=== PATIENT | male | born 1950 | race Caucasian/White ===

== ENCOUNTER 2024-07-10 11:38 | Inpatient (IN) | payer OTHER ==
[2024-07-10 13:35] LABS: #Basophils 0.04 10x3/uL (0.0-0.2); %Basophils 0.4 % (0.0-1.0); %Eosinophils 4.9 % (0.0-10.0); %Lymphocytes 12.3 % (21.0-51.0); %Monocytes 8.1 % (0.0-10.0); %Neutrophils 73.4 % (42.0-75.0); Hematocrit 25.3 % (42.0-52.0); Hemoglobin 8.9 g/dL (14.0-18.0); Mean Corpuscular HGB CONC 35.2 g/dL (32.0-36.0); Mean Corpuscular Hemoglobin 30.7 pg (27.0-31.0); Mean Corpuscular Volume 87.2 fL (78.0-98.0); Mean Platelet Volume 9.3 fL (7.4-10.4); Platelet Count 325 10x3/uL (130-400); RBC Distribution Width 14.1 % (11.5-14.5)
[2024-07-10 13:45] LABS: ALT (SGPT) 23 U/L (8-55); AST (SGOT) 33 U/L (5-34); Albumin 2.9 g/dL (3.4-4.8); Alkaline Phosphatase 79 U/L (40-110); Anion Gap 13 mmol/L (10-20); BUN (Urea Nitrogen) 18 mg/dL (8.4-25.7); Bilirubin, Total 1.4 mg/dL (0.2-1.2); Calc. Creatinine Clearance 0 mL/min (70-130); Calcium 8.4 mg/dL (7.8-10.44); Carbon Dioxide 20 mmol/L (23-31); Chloride 107 mmol/L (98-107); Estimated GFR 85; Globulin 3.9 g/dL (2.4-3.5); Glucose 74 mg/dL (83-110); Potassium 4.2 mmol/L (3.5-5.1); Protein, Total 6.8 g/dL (5.8-8.1); Sodium 136 mmol/L (136-145)
[2024-07-10 13:50] LABS: Troponin I 0.159 ng/mL (< 0.028)
[2024-07-10] MEDS ORDERED: Aspirin Chewable 81 MG TAB ONE (14:04)
[2024-07-10] MEDS ORDERED: Cefepime 2 GM VIAL ONE (15:30)
[2024-07-10] MEDS ORDERED: Sodium Chloride 0.9% 100 ML ONE (15:30)
[2024-07-10] MEDS ORDERED: Vancomycin 1 GM/200 ML (FROZEN) BAG ONE (15:30)
[2024-07-10] MEDS ORDERED: Ondansetron PF 4 MG/2 ML Vial IVP PRN (18:38)
[2024-07-10] MEDS ORDERED: Loperamide HCl 2 MG CAP PO PRN (18:38)
[2024-07-10] MEDS ORDERED: Nitroglycerin 0.4 MG TAB (25 Tab Bottle) SL SCH (18:45)
[2024-07-10] MEDS ORDERED: Glucagon 1 MG/ML KIT IM PRN (19:04)
[2024-07-10] MEDS ORDERED: Dextrose 5% in Water 1,000 ML IV PRN (19:04)
[2024-07-10] MEDS ORDERED: Dextrose 50% Abboject 50 ML SYRINGE SLOW IVP PRN (19:04)
[2024-07-10 19:56] LABS: Troponin I 0.134 ng/mL (< 0.028)
[2024-07-10] MEDS ORDERED: Nitroglycerin 0.4 MG TAB (25 Tab Bottle) SL PRN (20:10)
[2024-07-10] MEDS: Acetaminophen 325 MG TAB PO SCH (21:19)
[2024-07-10] MEDS: Atorvastatin Calcium 40 MG TAB PO SCH (21:24)
[2024-07-10] MEDS: Ascorbic Acid 500 mg Chewable Tablet PO SCH (21:24)
[2024-07-10] MEDS: Acetaminophen/Codeine 30-300mg Tablet PO PRN (21:24)
[2024-07-10] MEDS: Lactulose 20 GM (30 mL) UDCUP PO SCH (21:26)
[2024-07-10] MEDS ORDERED: HumaLOG 300 UNITS/3 ML VIAL SC PRN (21:30)
[2024-07-10 21:44] VITALS: BMI 33.3
[2024-07-10] MEDS: Piperacillin/Tazobactam 3.375 GM in Sodium Chloride 0.9% 100 ML IVPB SCH ×2 (22:14→22:26)
[2024-07-10] MEDS: Famotidine/PF 20 mg/2ml Vial SLOW IVP SCH (22:14)
[2024-07-10] MEDS: Insulin Lispro 100 UNIT/ML 10 ML VIAL SC PRN (22:15)
[2024-07-10] MEDS: Insulin NPH Human Isophane 100 UNITS/ML (10 ML VIAL) SC SCH (22:45)
[2024-07-10] MEDS: Vancomycin HCl 750 MG in Sodium Chloride 0.9% 250 ML 250 ML IVPB SCH (23:04)
[2024-07-10] MEDS: Vancomycin 1 GM in Premix 1 BAG IVPB SCH (23:59)
[2024-07-11] MEDS: Piperacillin/Tazobactam 3.375 GM in Sodium Chloride 0.9% 100 ML IVPB SCH (02:09)
[2024-07-11 05:15] LABS: #Basophils 0.07 10x3/uL (0.0-0.2); %Lymphocytes 12.9 % (21.0-51.0); %Monocytes 8.5 % (0.0-10.0); %Neutrophils 70.6 % (42.0-75.0); Hematocrit 25.6 % (42.0-52.0); Hemoglobin 8.5 g/dL (14.0-18.0); Mean Corpuscular HGB CONC 33.2 g/dL (32.0-36.0); Mean Corpuscular Hemoglobin 30.8 pg (27.0-31.0); Mean Corpuscular Volume 92.8 fL (78.0-98.0); Platelet Count 298 10x3/uL (130-400); RBC Distribution Width 14.6 % (11.5-14.5); Red Blood Cell (RBC) Count 2.76 mill/uL (4.70-6.10)
[2024-07-11 05:38] LABS: ALT (SGPT) 18 U/L (8-55); AST (SGOT) 25 U/L (5-34); Albumin 2.5 g/dL (3.4-4.8); Alkaline Phosphatase 75 U/L (40-110); Anion Gap 12 mmol/L (10-20); BUN (Urea Nitrogen) 16 mg/dL (8.4-25.7); Bilirubin, Total 1.3 mg/dL (0.2-1.2); Calc. Creatinine Clearance 82 mL/min (70-130); Carbon Dioxide 19 mmol/L (23-31); Chloride 109 mmol/L (98-107); Estimated GFR 80; Globulin 3.5 g/dL (2.4-3.5); Glucose 99 mg/dL (83-110); Potassium 4.1 mmol/L (3.5-5.1); Sodium 136 mmol/L (136-145)
[2024-07-11 05:48] LABS: Vancomycin, Random 17.4 ug/mL (See Comment)
[2024-07-11] MEDS: Levothyroxine Sodium 50 MCG TAB PO SCH (06:16)
[2024-07-11] MEDS: Insulin NPH Human Isophane 100 UNITS/ML (10 ML VIAL) SC SCH (08:50)
[2024-07-11] MEDS: Enoxaparin 40 MG (0.4 mL) SYRINGE SC SCH (08:50)
[2024-07-11] MEDS: Hydrochlorothiazide 25 MG TAB PO SCH (08:51)
[2024-07-11] MEDS: Aspirin 81 mg Enteric Coated Tablet PO SCH (08:51)
[2024-07-11] MEDS: Amlodipine 10 MG TAB PO SCH (08:51)
[2024-07-11] MEDS: Isosorbide Mononitrate 30 MG ER.TAB PO SCH (08:51)
[2024-07-11] MEDS: Clopidogrel Bisulfate 75 MG TAB PO SCH (08:51)
[2024-07-11] MEDS: Vancomycin 1 GM in Premix 1 BAG IVPB SCH (08:52)
[2024-07-11] MEDS: Lisinopril 20 MG TAB PO SCH (08:52)
[2024-07-11] MEDS: traMADol HCl 50 MG TAB PO PRN (10:14)
[2024-07-11 14:57] LABS: Troponin I 0.117 ng/mL (< 0.028)
[2024-07-11] MEDS: Sodium Chloride 0.9% 500 ML IV SCH (20:24)
[2024-07-11] MEDS: Albumin 25% 25 GM (100 mL) BOT IVPB SCH (21:10)
[2024-07-11] MEDS: Sodium Chloride 0.9% 1,000 ML IV SCH (23:11)
[2024-07-12] MEDS: Sodium Chloride 0.9% 1,000 ML IV SCH (04:30)
[2024-07-12 07:45] LABS: #Basophils 0.07 10x3/uL (0.0-0.2); %Basophils 0.9 % (0.0-1.0); %Eosinophils 5.5 % (0.0-10.0); %Lymphocytes 11.8 % (21.0-51.0); %Monocytes 9.4 % (0.0-10.0); %Neutrophils 71.5 % (42.0-75.0); Hematocrit 27.4 % (42.0-52.0); Hemoglobin 8.8 g/dL (14.0-18.0); Mean Corpuscular HGB CONC 32.1 g/dL (32.0-36.0); Mean Corpuscular Hemoglobin 30.2 pg (27.0-31.0); Mean Corpuscular Volume 94.2 fL (78.0-98.0); Mean Platelet Volume 9.2 fL (7.4-10.4); Platelet Count 319 10x3/uL (130-400); RBC Distribution Width 15.1 % (11.5-14.5); Red Blood Cell (RBC) Count 2.91 mill/uL (4.70-6.10)
[2024-07-12 08:06] LABS: Anion Gap 13 mmol/L (10-20); BUN (Urea Nitrogen) 17 mg/dL (8.4-25.7); Calc. Creatinine Clearance 80 mL/min (70-130); Calcium 8.3 mg/dL (7.8-10.44); Carbon Dioxide 17 mmol/L (23-31); Chloride 109 mmol/L (98-107); Estimated GFR 77; Glucose 67 mg/dL (83-110); Sodium 135 mmol/L (136-145)
[2024-07-12] MEDS: Pantoprazole 40 MG VIAL IVP SCH (09:14)
[2024-07-12] MEDS: Amlodipine 5 MG TAB PO SCH (09:14)
[2024-07-12] MEDS: Lisinopril 20 MG TAB PO SCH (09:15)
[2024-07-12 11:50] LABS: Hematocrit 27.5 % (42.0-52.0); Hemoglobin 9.1 g/dL (14.0-18.0)
[2024-07-12] MEDS: Insulin Lispro 100 UNIT/ML 10 ML VIAL SC PRN (18:15)
[2024-07-13 05:15] LABS: #Basophils 0.07 10x3/uL (0.0-0.2); %Basophils 0.9 % (0.0-1.0); %Eosinophils 5.4 % (0.0-10.0); %Lymphocytes 14.6 % (21.0-51.0); %Monocytes 9.3 % (0.0-10.0); %Neutrophils 69.1 % (42.0-75.0); Hematocrit 30.2 % (42.0-52.0); Hemoglobin 10.1 g/dL (14.0-18.0); Mean Corpuscular HGB CONC 33.4 g/dL (32.0-36.0); Mean Corpuscular Hemoglobin 30.9 pg (27.0-31.0); Mean Corpuscular Volume 92.4 fL (78.0-98.0); Platelet Count 349 10x3/uL (130-400); RBC Distribution Width 15.1 % (11.5-14.5); Red Blood Cell (RBC) Count 3.27 mill/uL (4.70-6.10)
[2024-07-13 05:40] LABS: Anion Gap 13 mmol/L (10-20); BUN (Urea Nitrogen) 16 mg/dL (8.4-25.7); Calc. Creatinine Clearance 73 mL/min (70-130); Carbon Dioxide 20 mmol/L (23-31); Chloride 107 mmol/L (98-107); Estimated GFR 69; Glucose 112 mg/dL (83-110); Potassium 4.5 mmol/L (3.5-5.1); Sodium 135 mmol/L (136-145)
[2024-07-14 05:02] LABS: Hematocrit 28.3 % (42.0-52.0); Hemoglobin 9.5 g/dL (14.0-18.0); Mean Corpuscular HGB CONC 33.6 g/dL (32.0-36.0); Mean Corpuscular Hemoglobin 30.4 pg (27.0-31.0); Mean Corpuscular Volume 90.7 fL (78.0-98.0); Mean Platelet Volume 9.1 fL (7.4-10.4); Platelet Count 334 10x3/uL (130-400); RBC Distribution Width 15.2 % (11.5-14.5); Red Blood Cell (RBC) Count 3.12 mill/uL (4.70-6.10)
[2024-07-14 05:18] LABS: Anion Gap 11 mmol/L (10-20); BUN (Urea Nitrogen) 17 mg/dL (8.4-25.7); Calc. Creatinine Clearance 79 mL/min (70-130); Calcium 8.9 mg/dL (7.8-10.44); Carbon Dioxide 20 mmol/L (23-31); Chloride 107 mmol/L (98-107); Estimated GFR 75; Glucose 113 mg/dL (83-110); Potassium 4.1 mmol/L (3.5-5.1); Sodium 134 mmol/L (136-145)
[2024-07-15] MEDS: Morphine 2 MG/ML VIAL SLOW IVP SCH (13:20)
[2024-07-15] MEDS: Vancomycin (BATCH) 2 GM in Premix 1 BAG IVPB SCH (13:21)
[2024-07-16 06:21] LABS: Vancomycin, Random 15.9 ug/mL (See Comment)
[2024-07-16 06:27] LABS: #Basophils 0.04 10x3/uL (0.0-0.2); %Basophils 0.6 % (0.0-1.0); %Eosinophils 4.4 % (0.0-10.0); %Lymphocytes 16.1 % (21.0-51.0); %Monocytes 7.5 % (0.0-10.0); %Neutrophils 70.7 % (42.0-75.0); Anion Gap 11 mmol/L (10-20); BUN (Urea Nitrogen) 17 mg/dL (8.4-25.7); Calc. Creatinine Clearance 82 mL/min (70-130); Calcium 8.8 mg/dL (7.8-10.44); Carbon Dioxide 20 mmol/L (23-31); Chloride 107 mmol/L (98-107); Estimated GFR 85; Glucose 106 mg/dL (83-110); Hemoglobin 9.3 g/dL (14.0-18.0); Mean Corpuscular HGB CONC 33.2 g/dL (32.0-36.0); Mean Corpuscular Hemoglobin 30.4 pg (27.0-31.0); Mean Corpuscular Volume 91.5 fL (78.0-98.0); Mean Platelet Volume 9.1 fL (7.4-10.4); Platelet Count 318 10x3/uL (130-400); Potassium 4.3 mmol/L (3.5-5.1); RBC Distribution Width 15.3 % (11.5-14.5); Red Blood Cell (RBC) Count 3.06 mill/uL (4.70-6.10); Sodium 134 mmol/L (136-145)
[2024-07-16] MEDS: Vancomycin (BATCH) 1.5 GM in Premix 1 BAG IVPB SCH ×2 (13:11→14:37)
[2024-07-17 17:47] VITALS: BMI 31.5
[2024-07-18 05:38] LABS: Vancomycin, Random 18.2 ug/mL (See Comment)
[2024-07-19 07:19] LABS: Hematocrit 31.3 % (42.0-52.0); Mean Corpuscular HGB CONC 31.9 g/dL (32.0-36.0); Mean Corpuscular Hemoglobin 30.8 pg (27.0-31.0); Mean Corpuscular Volume 96.3 fL (78.0-98.0); Mean Platelet Volume 9.4 fL (7.4-10.4); Platelet Count 286 10x3/uL (130-400); RBC Distribution Width 15.5 % (11.5-14.5); Red Blood Cell (RBC) Count 3.25 mill/uL (4.70-6.10)
[2024-07-19 08:04] LABS: Anion Gap 12 mmol/L (10-20); BUN (Urea Nitrogen) 24 mg/dL (8.4-25.7); Calc. Creatinine Clearance 63 mL/min (70-130); Calcium 8.9 mg/dL (7.8-10.44); Carbon Dioxide 20 mmol/L (23-31); Chloride 105 mmol/L (98-107); Estimated GFR 62; Glucose 94 mg/dL (83-110); Potassium 4.5 mmol/L (3.5-5.1); Sodium 132 mmol/L (136-145)
[2024-07-20] MEDS: Lactated Ringer's 1,000 ML IV SCH (09:21)
[2024-07-20] MEDS: Vancomycin 1 GM in Premix 1 BAG IVPB SCH (11:57)
[2024-07-20] MEDS: Lisinopril 20 MG TAB PO SCH (12:00)
[2024-07-21 00:04] VITALS: BP 107/74; TEMP 97.8
== END 2024-07-21 01:20 | disposition short-term general hospital (02) | DRG 638 ==
LOC: ERS 11:38 → EEVIPCON 11:38 → OBSVTOIN 18:44 → 2NO 18:44 → T4-A 07-18 15:43
PROVIDERS: ADMIT Family Medicine; ATTEND Hospitalist
DX: E11.69 Type 2 diabetes mellitus with other specified complication (principal); E87.1 Hypo-osmolality and hyponatremia; L03.116 Cellulitis of left lower limb; M86.8X7 Other osteomyelitis, ankle and foot; I5A Non-ischemic myocardial injury (non-traumatic); E11.621 Type 2 diabetes mellitus with foot ulcer; L97.529 Non-pressure chronic ulcer of other part of left foot with unspecified severity; A49.02 Methicillin resistant Staphylococcus aureus infection, unspecified site; D64.9 Anemia, unspecified; I10 Essential (primary) hypertension; E78.5 Hyperlipidemia, unspecified; E11.51 Type 2 diabetes mellitus with diabetic peripheral angiopathy without gangrene; E03.9 Hypothyroidism, unspecified; Z79.82 Long term (current) use of aspirin; Z79.899 Other long term (current) drug therapy; Z79.4 Long term (current) use of insulin; Z79.890 Hormone replacement therapy; Z98.890 Other specified postprocedural states
CPT/HCPCS: 36415; 36416; 71045; 80048; 80053; 80202; 82565; 83605; 83880; 84484; 85025; 85027; 86141; 87040; 93005; 93010; 93306; 96374; 96375; 97139; J0692; J1650; J1815; J2272; J2470; J2543; J3370; J3370-JW; J3490; J7030; J7050; J7120; P9047

== ENCOUNTER 2025-07-09 22:18 | Inpatient (IN) | payer OTHER ==
[2025-07-10 00:52] VITALS: BMI 32.6
[2025-07-10] MEDS ORDERED: Ondansetron PF 4 MG/2 ML Vial IVP PRN (03:26)
[2025-07-10] MEDS ORDERED: Dextrose 50% Abboject 50 ML SYRINGE SLOW IVP PRN (03:26)
[2025-07-10] MEDS ORDERED: Calcium Carbonate 500 MG ChewTAB PO PRN (03:26)
[2025-07-10] MEDS ORDERED: Glucagon 1 MG/ML KIT IM PRN (03:26)
[2025-07-10] MEDS ORDERED: Senokot S 8.6-50 MG TAB PO PRN (03:26)
[2025-07-10] MEDS: dilTIAZem 25 MG/5 ML VIAL SLOW IVP SCH ×2 (03:56→04:42)
[2025-07-10] MEDS ORDERED: dilTIAZem 25 MG/5 ML VIAL SLOW IVP PRN (04:21)
[2025-07-10 04:49] LABS: #Basophils 0.05 10x3/uL (0.0-0.2); #Eosinophils 0.27 10x3/uL (0.0-0.7); #Monocytes 0.71 10x3/uL (0.11-0.59); #Neutrophils 10.55 10x3/uL (1.40-6.50); %Basophils 0.4 % (0.0-1.0); %Eosinophils 2.1 % (0.0-10.0); %Lymphocytes 8.4 % (21.0-51.0); %Monocytes 5.6 % (0.0-10.0); %Neutrophils 82.9 % (42.0-75.0); Hematocrit 29.9 % (42.0-52.0); Hemoglobin 10.1 g/dL (14.0-18.0); Mean Corpuscular Hemoglobin 28.7 pg (27.0-31.0); Mean Corpuscular Volume 84.9 fL (78.0-98.0); Platelet Count 229 10x3/uL (130-400); Red Blood Cell (RBC) Count 3.52 mill/uL (4.70-6.10); White Blood Cell (WBC) Count 12.72 10x3/uL (4.8-10.8)
[2025-07-10] MEDS ORDERED: Vancomycin 1 GM in Premix 1 BAG IVPB SCH (05:00)
[2025-07-10 05:08] LABS: CRP, High Sensitivity at Bryan 17.00 mg/dL (< or = 0.5)
[2025-07-10 05:13] LABS: CK (CPK) 288 U/L (30-200)
[2025-07-10 05:18] LABS: Calcium 8.1 mg/dL (7.8-10.44)
[2025-07-10 05:20] LABS: Anion Gap 15 mmol/L (10-20); BUN (Urea Nitrogen) 17 mg/dL (8.4-25.7); Calc. Creatinine Clearance 71 mL/min (70-130); Carbon Dioxide 19 mmol/L (23-31); Chloride 103 mmol/L (98-107); Glucose 197 mg/dL (83-110); Potassium 4.0 mmol/L (3.5-5.1); Sodium 133 mmol/L (136-145)
[2025-07-10] MEDS: Levothyroxine 150 MCG TAB PO SCH (06:32)
[2025-07-10] MEDS: Metoprolol Tartrate 5 MG (5 mL) VIAL ONE (08:05)
[2025-07-10] MEDS ORDERED: Lisinopril 10 MG TAB PO SCH (09:00)
[2025-07-10] MEDS: Gabapentin 300 MG CAP PO SCH (10:11)
[2025-07-10] MEDS: metFORMIN 500 MG TAB PO SCH (10:11)
[2025-07-10] MEDS: Lactulose 20 GM (30 mL) UDCUP PO SCH (10:12)
[2025-07-10] MEDS: Pantoprazole 40 MG DR.TAB PO SCH (10:12)
[2025-07-10] MEDS: Metoprolol Succinate XL 25 MG ER.TAB PO SCH (10:12)
[2025-07-10] MEDS: glipiZIDE 5 MG TAB PO SCH (10:15)
[2025-07-10] MEDS ORDERED: Ondansetron PF 4 MG/2 ML Vial ONE ×2 (12:30→16:45)
[2025-07-10] MEDS ORDERED: PROPOFOL 0 ML ONE (12:30)
[2025-07-10] MEDS ORDERED: fentaNYL PF 100 MCG/2 ML SYRINGE ONE ×2 (12:30→17:01)
[2025-07-10] MEDS ORDERED: Lidocaine 1% PF 5 ML VIAL ONE ×2 (12:30→15:15)
[2025-07-10] MEDS ORDERED: Bacitracin Zinc Ointment 30 gm TUBE ONE (14:45)
[2025-07-10] MEDS ORDERED: PROPOFOL 20 ML ONE (14:53)
[2025-07-10] MEDS ORDERED: SUCCINYLCHOLINE/SOD CL,ISO/PF 200 MG/10 ML SYRINGE FS ONE (15:15)
[2025-07-10] MEDS ORDERED: Thrombin 5000 UNITS/5 ML VIAL ONE (15:47)
[2025-07-10] MEDS ORDERED: Heparin 10,000 UNITS/ 10 ML VIAL ONE (16:35)
[2025-07-10] MEDS ORDERED: Heparin 5,000 UNITS/ML VIAL ONE (16:49)
[2025-07-10] MEDS: Vancomycin 1.5 GM / NS 500 ML VIAL-2-BAG IVPB SCH (17:58)
[2025-07-10] MEDS: Enoxaparin 40 MG (0.4 mL) SYRINGE SC SCH (21:40)
[2025-07-11 04:54] LABS: #Basophils 0.06 10x3/uL (0.0-0.2); #Eosinophils 0.21 10x3/uL (0.0-0.7); #Monocytes 0.88 10x3/uL (0.11-0.59); #Neutrophils 10.61 10x3/uL (1.40-6.50); %Basophils 0.5 % (0.0-1.0); %Eosinophils 1.6 % (0.0-10.0); %Lymphocytes 7.5 % (21.0-51.0); %Monocytes 6.9 % (0.0-10.0); %Neutrophils 83.0 % (42.0-75.0); Hematocrit 31.0 % (42.0-52.0); Hemoglobin 10.0 g/dL (14.0-18.0); Mean Corpuscular Hemoglobin 27.6 pg (27.0-31.0); Mean Corpuscular Volume 85.6 fL (78.0-98.0); Platelet Count 354 10x3/uL (130-400); Red Blood Cell (RBC) Count 3.62 mill/uL (4.70-6.10); White Blood Cell (WBC) Count 12.79 10x3/uL (4.8-10.8)
[2025-07-11 05:15] LABS: Vancomycin, Random 20.4 ug/mL (See Comment)
[2025-07-11 05:16] LABS: Anion Gap 10 mmol/L (10-20); BUN (Urea Nitrogen) 19 mg/dL (8.4-25.7); Calc. Creatinine Clearance 66 mL/min (70-130); Calcium 7.6 mg/dL (7.8-10.44); Carbon Dioxide 21 mmol/L (23-31); Chloride 107 mmol/L (98-107); Glucose 177 mg/dL (83-110); Potassium 4.1 mmol/L (3.5-5.1); Sodium 134 mmol/L (136-145)
[2025-07-11 12:45] VITALS: BMI 32.6
[2025-07-11] MEDS: Melatonin 3 MG TAB PO PRN (20:38)
[2025-07-12 06:56] LABS: Anion Gap 13 mmol/L (10-20); BUN (Urea Nitrogen) 18 mg/dL (8.4-25.7); Calc. Creatinine Clearance 74 mL/min (70-130); Calcium 7.9 mg/dL (7.8-10.44); Carbon Dioxide 14 mmol/L (23-31); Chloride 108 mmol/L (98-107); Glucose 162 mg/dL (83-110); Potassium 4.3 mmol/L (3.5-5.1); Sodium 131 mmol/L (136-145)
[2025-07-12 07:00] LABS: #Basophils 0.07 10x3/uL (0.0-0.2); #Eosinophils 0.34 10x3/uL (0.0-0.7); #Monocytes 0.62 10x3/uL (0.11-0.59); #Neutrophils 8.60 10x3/uL (1.40-6.50); %Basophils 0.7 % (0.0-1.0); %Eosinophils 3.2 % (0.0-10.0); %Lymphocytes 9.3 % (21.0-51.0); %Monocytes 5.8 % (0.0-10.0); %Neutrophils 80.1 % (42.0-75.0); Hematocrit 28.2 % (42.0-52.0); Hemoglobin 8.8 g/dL (14.0-18.0); Mean Corpuscular Hemoglobin 27.8 pg (27.0-31.0); Mean Corpuscular Volume 89.2 fL (78.0-98.0); Platelet Count 368 10x3/uL (130-400); Red Blood Cell (RBC) Count 3.16 mill/uL (4.70-6.10); White Blood Cell (WBC) Count 10.73 10x3/uL (4.8-10.8)
[2025-07-12] MEDS: cefTRIAXone\\ROCEPHIN 2 GM in Sodium Chloride 0.9% 100 ML IVPB SCH (17:11)
[2025-07-13 06:31] LABS: #Basophils 0.10 10x3/uL (0.0-0.2); #Eosinophils 0.40 10x3/uL (0.0-0.7); #Monocytes 0.66 10x3/uL (0.11-0.59); #Neutrophils 7.96 10x3/uL (1.40-6.50); %Basophils 1.0 % (0.0-1.0); %Eosinophils 3.9 % (0.0-10.0); %Lymphocytes 9.8 % (21.0-51.0); %Monocytes 6.5 % (0.0-10.0); %Neutrophils 77.9 % (42.0-75.0); Hematocrit 30.9 % (42.0-52.0); Hemoglobin 10.2 g/dL (14.0-18.0); Mean Corpuscular Hemoglobin 27.9 pg (27.0-31.0); Mean Corpuscular Volume 84.7 fL (78.0-98.0); Platelet Count 374 10x3/uL (130-400); Red Blood Cell (RBC) Count 3.65 mill/uL (4.70-6.10); White Blood Cell (WBC) Count 10.21 10x3/uL (4.8-10.8)
[2025-07-13 06:41] LABS: Anion Gap 13 mmol/L (10-20); BUN (Urea Nitrogen) 25 mg/dL (8.4-25.7); Calc. Creatinine Clearance 76 mL/min (70-130); Calcium 8.3 mg/dL (7.8-10.44); Carbon Dioxide 19 mmol/L (23-31); Chloride 105 mmol/L (98-107); Glucose 133 mg/dL (83-110); Potassium 4.4 mmol/L (3.5-5.1); Sodium 133 mmol/L (136-145)
[2025-07-13] MEDS: PNEUMOC 20-VAL CONJ-DIP CRM/PF 0.5 ML SYRINGE IM ONE (10:47)
[2025-07-13] MEDS ORDERED: Ondansetron PF 4 MG/2 ML Vial ONE (11:08)
[2025-07-13] MEDS ORDERED: PROPOFOL 20 ML ONE (11:08)
[2025-07-13] MEDS ORDERED: Lidocaine 1% PF 5 ML VIAL ONE (11:08)
[2025-07-13] MEDS ORDERED: PHENYLEPHRINE-NS 100 MCG/ML 10 ML SYRINGE ONE (11:18)
[2025-07-13] MEDS ORDERED: fentaNYL PF 100 MCG/2 ML SYRINGE ONE ×2 (12:11→12:39)
[2025-07-13] MEDS ORDERED: HYDROmorphone 0.5 MG/0.5 ML SYRINGE ONE ×3 (13:12→14:29)
[2025-07-13] MEDS ORDERED: hydrALAZINE 20 MG/ML VIAL ONE (13:58)
[2025-07-13] MEDS ORDERED: HYDROmorphone 0.5 MG/0.5 ML SYR SLOW IVP PRN (14:30)
[2025-07-13] MEDS ORDERED: hydrALAZINE 20 MG/ML VIAL SLOW IVP PRN (15:17)
[2025-07-14 04:37] LABS: #Basophils 0.05 10x3/uL (0.0-0.2); #Eosinophils 0.29 10x3/uL (0.0-0.7); #Monocytes 0.53 10x3/uL (0.11-0.59); #Neutrophils 5.41 10x3/uL (1.40-6.50); %Basophils 0.7 % (0.0-1.0); %Eosinophils 4.0 % (0.0-10.0); %Lymphocytes 12.4 % (21.0-51.0); %Monocytes 7.3 % (0.0-10.0); %Neutrophils 74.9 % (42.0-75.0); Hematocrit 28.3 % (42.0-52.0); Hemoglobin 9.1 g/dL (14.0-18.0); Mean Corpuscular Hemoglobin 27.6 pg (27.0-31.0); Mean Corpuscular Volume 85.8 fL (78.0-98.0); Platelet Count 368 10x3/uL (130-400); Red Blood Cell (RBC) Count 3.30 mill/uL (4.70-6.10); White Blood Cell (WBC) Count 7.23 10x3/uL (4.8-10.8)
[2025-07-14 04:57] LABS: CRP, High Sensitivity at Bryan 7.69 mg/dL (< or = 0.5)
[2025-07-14 04:58] LABS: ALT (SGPT) 19 U/L (Less than 45); AST (SGOT) 31 U/L (11-34); Albumin 1.7 g/dL (3.1-4.5); Alkaline Phosphatase 78 U/L (40-110); Anion Gap 10 mmol/L (10-20); BUN (Urea Nitrogen) 25 mg/dL (8.4-25.7); Bilirubin, Total 0.2 mg/dL (0.3-1.2); Calc. Creatinine Clearance 73 mL/min (70-130); Calcium 8.0 mg/dL (7.8-10.44); Carbon Dioxide 22 mmol/L (23-31); Chloride 105 mmol/L (98-107); Globulin 4.4 g/dL (2.4-3.5); Glucose 105 mg/dL (83-110); Potassium 4.4 mmol/L (3.5-5.1); Sodium 133 mmol/L (136-145)
[2025-07-15 04:23] LABS: #Basophils 0.05 10x3/uL (0.0-0.2); #Eosinophils 0.33 10x3/uL (0.0-0.7); #Monocytes 0.38 10x3/uL (0.11-0.59); #Neutrophils 5.87 10x3/uL (1.40-6.50); %Basophils 0.6 % (0.0-1.0); %Eosinophils 4.3 % (0.0-10.0); %Lymphocytes 13.7 % (21.0-51.0); %Monocytes 4.9 % (0.0-10.0); %Neutrophils 75.7 % (42.0-75.0); Hematocrit 28.7 % (42.0-52.0); Hemoglobin 9.2 g/dL (14.0-18.0); Mean Corpuscular Hemoglobin 28.1 pg (27.0-31.0); Mean Corpuscular Volume 87.8 fL (78.0-98.0); Platelet Count 387 10x3/uL (130-400); Red Blood Cell (RBC) Count 3.27 mill/uL (4.70-6.10); White Blood Cell (WBC) Count 7.75 10x3/uL (4.8-10.8)
[2025-07-15] MEDS: HYDROcodone/Acetaminophen 5/325 mg Tablet PO PRN (16:48)
[2025-07-16 04:34] LABS: #Basophils 0.04 10x3/uL (0.0-0.2); #Eosinophils 0.24 10x3/uL (0.0-0.7); #Monocytes 0.42 10x3/uL (0.11-0.59); #Neutrophils 4.25 10x3/uL (1.40-6.50); %Basophils 0.7 % (0.0-1.0); %Eosinophils 4.1 % (0.0-10.0); %Lymphocytes 14.8 % (21.0-51.0); %Monocytes 7.1 % (0.0-10.0); %Neutrophils 72.3 % (42.0-75.0); Hematocrit 28.8 % (42.0-52.0); Hemoglobin 9.3 g/dL (14.0-18.0); Mean Corpuscular Hemoglobin 27.8 pg (27.0-31.0); Mean Corpuscular Volume 86.0 fL (78.0-98.0); Platelet Count 376 10x3/uL (130-400); Red Blood Cell (RBC) Count 3.35 mill/uL (4.70-6.10); White Blood Cell (WBC) Count 5.88 10x3/uL (4.8-10.8)
[2025-07-17 03:50] LABS: Anion Gap 14 mmol/L (10-20); BUN (Urea Nitrogen) 29 mg/dL (8.4-25.7); Calc. Creatinine Clearance 77 mL/min (70-130); Calcium 8.2 mg/dL (7.8-10.44); Carbon Dioxide 20 mmol/L (23-31); Chloride 104 mmol/L (98-107); Glucose 84 mg/dL (83-110); Potassium 4.0 mmol/L (3.5-5.1); Sodium 134 mmol/L (136-145)
[2025-07-17] MEDS ORDERED: fentaNYL PF 100 MCG/2 ML SYRINGE ONE (09:52)
[2025-07-17] MEDS ORDERED: Lidocaine 1% PF 5 ML VIAL ONE (09:53)
[2025-07-17] MEDS ORDERED: PROPOFOL 20 ML ONE (09:53)
[2025-07-17] MEDS ORDERED: Sevoflurane 250 ML INH ANEST BOTTLE ONE (09:56)
[2025-07-17] MEDS ORDERED: Bacitracin Zinc Ointment 30 gm TUBE ONE (10:21)
[2025-07-17] MEDS ORDERED: PHENYLEPHRINE-NS 100 MCG/ML 10 ML SYRINGE ONE (11:07)
[2025-07-17] MEDS ORDERED: Metoprolol Tartrate 5 MG (5 mL) VIAL ONE (11:24)
[2025-07-17] MEDS ORDERED: Ondansetron PF 4 MG/2 ML Vial ONE (11:46)
[2025-07-17] MEDS ORDERED: HYDROmorphone 0.5 MG/0.5 ML SYRINGE ONE (12:24)
[2025-07-17] MEDS: metFORMIN 500 MG TAB PO SCH (18:27)
[2025-07-20 04:05] LABS: #Basophils 0.07 10x3/uL (0.0-0.2); #Eosinophils 0.38 10x3/uL (0.0-0.7); #Monocytes 0.45 10x3/uL (0.11-0.59); #Neutrophils 5.00 10x3/uL (1.40-6.50); %Basophils 1.0 % (0.0-1.0); %Eosinophils 5.2 % (0.0-10.0); %Lymphocytes 18.3 % (21.0-51.0); %Monocytes 6.2 % (0.0-10.0); %Neutrophils 68.9 % (42.0-75.0); Hematocrit 30.5 % (42.0-52.0); Hemoglobin 9.7 g/dL (14.0-18.0); Mean Corpuscular Hemoglobin 27.5 pg (27.0-31.0); Mean Corpuscular Volume 86.4 fL (78.0-98.0); Platelet Count 365 10x3/uL (130-400); Red Blood Cell (RBC) Count 3.53 mill/uL (4.70-6.10); White Blood Cell (WBC) Count 7.26 10x3/uL (4.8-10.8)
[2025-07-20 04:44] LABS: Anion Gap 12 mmol/L (10-20); BUN (Urea Nitrogen) 25 mg/dL (8.4-25.7); Calc. Creatinine Clearance 78 mL/min (70-130); Calcium 8.5 mg/dL (7.8-10.44); Carbon Dioxide 23 mmol/L (23-31); Chloride 105 mmol/L (98-107); Glucose 106 mg/dL (83-110); Potassium 4.0 mmol/L (3.5-5.1); Sodium 136 mmol/L (136-145)
[2025-07-20] MEDS: HYDROcodone/Acetaminophen 5/325 mg Tablet PO PRN (09:09)
[2025-07-20] MEDS: cefTRIAXone (ROCEPHIN) 2 GM VIAL ONE (17:26)
[2025-07-20] MEDS: Acetaminophen 325 MG TAB PO PRN (21:16)
[2025-07-22] MEDS ORDERED: Nitroglycerin 0.4 MG TAB (25 Tab Bottle) SL PRN (08:44)
[2025-07-22 09:24] LABS: #Basophils 0.09 10x3/uL (0.0-0.2); #Eosinophils 0.59 10x3/uL (0.0-0.7); #Monocytes 0.36 10x3/uL (0.11-0.59); #Neutrophils 4.20 10x3/uL (1.40-6.50); %Basophils 1.4 % (0.0-1.0); %Eosinophils 9.2 % (0.0-10.0); %Lymphocytes 18.0 % (21.0-51.0); %Monocytes 5.6 % (0.0-10.0); %Neutrophils 65.2 % (42.0-75.0); Hematocrit 30.9 % (42.0-52.0); Hemoglobin 10.0 g/dL (14.0-18.0); Mean Corpuscular Hemoglobin 28.1 pg (27.0-31.0); Mean Corpuscular Volume 86.8 fL (78.0-98.0); Platelet Count 362 10x3/uL (130-400); Red Blood Cell (RBC) Count 3.56 mill/uL (4.70-6.10); White Blood Cell (WBC) Count 6.44 10x3/uL (4.8-10.8)
[2025-07-22 10:07] LABS: Anion Gap 15 mmol/L (10-20); BUN (Urea Nitrogen) 34 mg/dL (8.4-25.7); Calc. Creatinine Clearance 72 mL/min (70-130); Calcium 8.4 mg/dL (7.8-10.44); Carbon Dioxide 21 mmol/L (23-31); Chloride 104 mmol/L (98-107); Glucose 165 mg/dL (83-110); Potassium 4.4 mmol/L (3.5-5.1); Sodium 136 mmol/L (136-145)
[2025-07-22] MEDS ORDERED: Iopamidol-370 76% 500 ML MDV (1 ML CHARGE) ONE (11:11)
[2025-07-23 04:16] LABS: Anion Gap 14 mmol/L (10-20); BUN (Urea Nitrogen) 34 mg/dL (8.4-25.7); Calc. Creatinine Clearance 69 mL/min (70-130); Calcium 8.6 mg/dL (7.8-10.44); Carbon Dioxide 21 mmol/L (23-31); Chloride 104 mmol/L (98-107); Glucose 103 mg/dL (83-110); Potassium 4.4 mmol/L (3.5-5.1); Sodium 135 mmol/L (136-145)
[2025-07-23 06:04] LABS: #Basophils 0.10 10x3/uL (0.0-0.2); #Eosinophils 0.50 10x3/uL (0.0-0.7); #Monocytes 0.42 10x3/uL (0.11-0.59); #Neutrophils 3.16 10x3/uL (1.40-6.50); %Basophils 1.7 % (0.0-1.0); %Eosinophils 8.7 % (0.0-10.0); %Lymphocytes 27.0 % (21.0-51.0); %Monocytes 7.3 % (0.0-10.0); %Neutrophils 54.6 % (42.0-75.0); Hematocrit 32.6 % (42.0-52.0); Hemoglobin 10.3 g/dL (14.0-18.0); Mean Corpuscular Hemoglobin 27.8 pg (27.0-31.0); Mean Corpuscular Volume 87.9 fL (78.0-98.0); Platelet Count 378 10x3/uL (130-400); Red Blood Cell (RBC) Count 3.71 mill/uL (4.70-6.10); White Blood Cell (WBC) Count 5.78 10x3/uL (4.8-10.8)
[2025-07-23] MEDS: cefTRIAXone\\ROCEPHIN 2 GM in Sodium Chloride 0.9% 100 ML IVPB SCH (17:22)
[2025-07-23] MEDS: Senokot S 8.6-50 MG TAB PO SCH (21:35)
[2025-07-23] MEDS: Gabapentin 400 MG CAP PO SCH (21:35)
[2025-07-23] MEDS: HYDROcodone/Acetaminophen 10/325 mg Tablet PO PRN (21:57)
[2025-07-26 04:20] LABS: #Basophils 0.08 10x3/uL (0.0-0.2); #Eosinophils 0.63 10x3/uL (0.0-0.7); #Monocytes 0.43 10x3/uL (0.11-0.59); #Neutrophils 2.72 10x3/uL (1.40-6.50); %Basophils 1.4 % (0.0-1.0); %Eosinophils 11.3 % (0.0-10.0); %Lymphocytes 30.4 % (21.0-51.0); %Monocytes 7.7 % (0.0-10.0); %Neutrophils 48.7 % (42.0-75.0); Hematocrit 31.4 % (42.0-52.0); Hemoglobin 10.0 g/dL (14.0-18.0); Mean Corpuscular Hemoglobin 27.9 pg (27.0-31.0); Mean Corpuscular Volume 87.5 fL (78.0-98.0); Platelet Count 291 10x3/uL (130-400); Red Blood Cell (RBC) Count 3.59 mill/uL (4.70-6.10); White Blood Cell (WBC) Count 5.59 10x3/uL (4.8-10.8)
[2025-07-26 04:41] LABS: Anion Gap 11 mmol/L (10-20); BUN (Urea Nitrogen) 40 mg/dL (8.4-25.7); Calc. Creatinine Clearance 73 mL/min (70-130); Calcium 8.5 mg/dL (7.8-10.44); Carbon Dioxide 24 mmol/L (23-31); Chloride 104 mmol/L (98-107); Glucose 116 mg/dL (83-110); Potassium 4.1 mmol/L (3.5-5.1); Sodium 135 mmol/L (136-145)
[2025-07-27 03:54] LABS: #Basophils 0.07 10x3/uL (0.0-0.2); #Eosinophils 0.68 10x3/uL (0.0-0.7); #Monocytes 0.51 10x3/uL (0.11-0.59); #Neutrophils 2.62 10x3/uL (1.40-6.50); %Basophils 1.3 % (0.0-1.0); %Eosinophils 12.5 % (0.0-10.0); %Lymphocytes 28.3 % (21.0-51.0); %Monocytes 9.4 % (0.0-10.0); %Neutrophils 47.9 % (42.0-75.0); Hematocrit 31.1 % (42.0-52.0); Hemoglobin 10.1 g/dL (14.0-18.0); Mean Corpuscular Hemoglobin 28.1 pg (27.0-31.0); Mean Corpuscular Volume 86.6 fL (78.0-98.0); Platelet Count 298 10x3/uL (130-400); Red Blood Cell (RBC) Count 3.59 mill/uL (4.70-6.10); White Blood Cell (WBC) Count 5.45 10x3/uL (4.8-10.8)
[2025-07-27 04:18] LABS: Anion Gap 14 mmol/L (10-20); BUN (Urea Nitrogen) 35 mg/dL (8.4-25.7); Calc. Creatinine Clearance 79 mL/min (70-130); Calcium 8.5 mg/dL (7.8-10.44); Carbon Dioxide 21 mmol/L (23-31); Chloride 106 mmol/L (98-107); Glucose 99 mg/dL (83-110); Potassium 4.2 mmol/L (3.5-5.1); Sodium 137 mmol/L (136-145)
[2025-07-28 03:51] LABS: #Basophils 0.07 10x3/uL (0.0-0.2); #Eosinophils 0.63 10x3/uL (0.0-0.7); #Monocytes 0.48 10x3/uL (0.11-0.59); #Neutrophils 3.00 10x3/uL (1.40-6.50); %Basophils 1.2 % (0.0-1.0); %Eosinophils 10.9 % (0.0-10.0); %Lymphocytes 27.3 % (21.0-51.0); %Monocytes 8.3 % (0.0-10.0); %Neutrophils 52.0 % (42.0-75.0); Hematocrit 30.4 % (42.0-52.0); Hemoglobin 9.8 g/dL (14.0-18.0); Mean Corpuscular Hemoglobin 28.0 pg (27.0-31.0); Mean Corpuscular Volume 86.9 fL (78.0-98.0); Platelet Count 280 10x3/uL (130-400); Red Blood Cell (RBC) Count 3.50 mill/uL (4.70-6.10); White Blood Cell (WBC) Count 5.78 10x3/uL (4.8-10.8)
[2025-07-28 04:16] LABS: Anion Gap 12 mmol/L (10-20); BUN (Urea Nitrogen) 29 mg/dL (8.4-25.7); Calc. Creatinine Clearance 81 mL/min (70-130); Calcium 8.4 mg/dL (7.8-10.44); Carbon Dioxide 23 mmol/L (23-31); Chloride 105 mmol/L (98-107); Glucose 102 mg/dL (83-110); Potassium 4.0 mmol/L (3.5-5.1); Sodium 136 mmol/L (136-145)
[2025-07-30] MEDS: Bacitracin Zinc Ointment 30 gm TUBE TOP SCH (10:29)
[2025-07-30 19:47] VITALS: BP 124/84; TEMP 97.6
== END 2025-07-30 22:10 | DRG 854 ==
LOC: EEVIPCON 07-10 00:11 → 2NO 07-10 00:11 → T4-B 07-11 20:07 → PCU 07-13 15:28
PROVIDERS: ADMIT Internal Medicine; ATTEND Internal Medicine
PROC: 01Q50ZZ Repair Median Nerve, Open Approach (ICD-10-PCS; principal; 2025-07-10)
PROC: 01Q60ZZ Repair Radial Nerve, Open Approach (ICD-10-PCS; 2025-07-10)
PROC: 01Q40ZZ Repair Ulnar Nerve, Open Approach (ICD-10-PCS; 2025-07-10)
PROC: 0RBS0ZZ Excision of Right Carpometacarpal Joint, Open Approach (ICD-10-PCS; 2025-07-10)
PROC: 0LB80ZZ Excision of Left Hand Tendon, Open Approach (ICD-10-PCS; 2025-07-10)
PROC: 0J9K0ZZ Drainage of Left Hand Subcutaneous Tissue and Fascia, Open Approach (ICD-10-PCS; 2025-07-10)
PROC: 2W38X1Z Immobilization of Right Upper Extremity using Splint (ICD-10-PCS; 2025-07-10)
PROC: 0PBQ0ZZ Excision of Left Metacarpal, Open Approach (ICD-10-PCS; 2025-07-13)
PROC: 0JBK0ZZ Excision of Left Hand Subcutaneous Tissue and Fascia, Open Approach (ICD-10-PCS; 2025-07-17)
PROC: 3E03329 Introduction of Other Anti-infective into Peripheral Vein, Percutaneous Approach (ICD-10-PCS; 2025-07-23)
DX: A41.9 Sepsis, unspecified organism (principal); E87.1 Hypo-osmolality and hyponatremia; L03.114 Cellulitis of left upper limb; N17.9 Acute kidney failure, unspecified; M86.9 Osteomyelitis, unspecified; L02.512 Cutaneous abscess of left hand; Z79.899 Other long term (current) drug therapy; I10 Essential (primary) hypertension; E78.5 Hyperlipidemia, unspecified; I25.10 Atherosclerotic heart disease of native coronary artery without angina pectoris; Z98.890 Other specified postprocedural states; M19.90 Unspecified osteoarthritis, unspecified site; E11.51 Type 2 diabetes mellitus with diabetic peripheral angiopathy without gangrene; R65.20 Severe sepsis without septic shock; N18.30 Chronic kidney disease, stage 3 unspecified; I48.91 Unspecified atrial fibrillation; E03.9 Hypothyroidism, unspecified; M65.98 Unspecified synovitis and tenosynovitis, other site; D64.9 Anemia, unspecified; I27.20 Pulmonary hypertension, unspecified; R07.9 Chest pain, unspecified; I65.23 Occlusion and stenosis of bilateral carotid arteries; E88.09 Other disorders of plasma-protein metabolism, not elsewhere classified; Z79.890 Hormone replacement therapy
CPT/HCPCS: 36415; 36416; 71275; 78452; 80048; 80053; 80202; 82550; 83036; 84145; 84439; 84443; 84484; 85025; 85379; 85520; 86141; 87070; 87077; 87081; 87205; 93005; 93010; 93017; 93306; 93923; 93970; 97139; A9502; J0360; J0665; J0696; J1171; J1644; J1650; J1815; J2185; J2270; J2704; J2785; J7030; Q4104; Q9967